=== PATIENT | female | born 1970 | race Two or more races ===

== ENCOUNTER 2022-12-08 09:13 | Emergency (ER) | payer BC, OTHER ==
[~2022-12-08] VITALS: Ht 152.4 cm; Wt 58.1 kg
[2022-12-08 09:42] VITALS: BP 130/71; PULSE 81; RESP 14; O2SAT 98
[2022-12-08] MEDS ORDERED: IBUPROFEN 600 MG TAB PO ONE (10:00)
[2022-12-08 10:08] VITALS: TEMP 98.6
[2022-12-08] MEDS ORDERED: METH-1181 PO (10:45)
[2022-12-08] MEDS ORDERED: IBUP-1454 PO (10:45)
== END 2022-12-08 10:50 | disposition home or self-care (01) ==
LOC: ER 09:13
DX: S76.011A Strain of muscle, fascia and tendon of right hip, initial encounter (principal); Z88.8 Allergy status to other drugs, medicaments and biological substances; V49.88XA Car occupant (driver) (passenger) injured in other specified transport accidents, initial encounter; Y93.89 Activity, other specified; Y92.89 Other specified places as the place of occurrence of the external cause; Y99.8 Other external cause status
CPT/HCPCS: 73502